=== PATIENT | male | born 1980 | race Caucasian/White ===

== ENCOUNTER 2017-06-05 18:23 | Emergency (ER) | payer BC ==
[~2017-06-05] VITALS: Ht 177.8 cm; Wt 70.3 kg
[~2017-06-05 18:23] MED LIST: GENT3.5O18 OP/OT; HYDR-757 PO
--- OUTSIDE RECORDS SUMMARY | 2017-06-05 18:29 | XMS REPORT ---
Author Author GREG Gregg [facility] Address Unknown Care Team Providers Care Electric Meter Technician Name Role Phone GREG Gregg Unavailable PROBLEMS Unknown Problems ALLERGIES Substance Reaction Event Type Date Status N.K.D.A. Unknown Non Drug Allergy Apr, Unknown SOCIAL HISTORY No smoking Hx information available PLAN OF CARE Activity Details Follow Up prn Reason:miguel/hygiene VITAL SIGNS Blood pressure systolic 80 mmHg 2016-04-25 Blood pressure diastolic 54 mmHg 2016-04-25 MEDICATIONS No Known Medications RESULTS No Results PROCEDURES Procedure Date Ordered Related Diagnosis Body Site EXTRAC ERUPTED TOOTH/EXPOSED ROOT Apr 25, 2016 IMMUNIZATIONS No Known Immunizations
--- OUTSIDE RECORDS SUMMARY | 2017-06-05 18:29 | XMS REPORT ---
Author Author GREG Gregg [facility] Address Unknown Care Team Providers Care Meat Packer Name Role Phone GREG Gregg Unavailable PROBLEMS Unknown Problems ALLERGIES Substance Reaction Event Type Date Status N.K.D.A. Unknown Non Drug Allergy Apr, Unknown SOCIAL HISTORY No smoking Hx information available PLAN OF CARE Activity Details Follow Up prn Reason:te VITAL SIGNS Blood pressure systolic 147 mmHg 2016-04-14 Blood pressure diastolic 102 mmHg 2016-04-14 MEDICATIONS Medication Instructions Dosage Frequency Start Date End Date Duration Status Amoxicillin 500 MG Orally 4 times a day 1 capsule 6h Apr, Apr, 7 days Active [place] 5-325 MG Orally every 6 hrs 1 tablet as needed 6h Apr, Apr, 4 days Active RESULTS No Results PROCEDURES Procedure Date Ordered Related Diagnosis Body Site LTD ORAL EVALUATION - PROBLEM FOCUS Apr 14, 2016 INTRAORL-PERIAPICAL 1 FILM [id number] Apr 14, 2016 IMMUNIZATIONS No Known Immunizations
--- OUTSIDE RECORDS SUMMARY | 2017-06-05 18:29 | XMS REPORT | Continuity of Care Document ---
Author Author [facility] Organization [facility] Address Unknown Phone Unavailable Allergies Active Description Code Type Severity Reaction Onset Reported/Identified Relationship to Patient Clinical Status Yes No Known Drug Allergies [id number] Drug Allergy Unknown N/A 11/01/2014 Medications There is no data. Problems Date Dx Coded Attending Type Code Diagnosis Diagnosed By 11/01/2014 MATHEW SERNA APRN Ot 930.0 11/01/2014 MATHEW SERNA APRN Ot E000.8 11/01/2014 MATHEW SERNA APRN Ot E914 11/01/2014 MATHEW SERNA APRN Ot V06.1 Procedures There is no data. Results There is no data. Encounters ACCT No. Visit Date/Time Discharge Status Pt. Type Provider Facility Loc./Unit Complaint [id number] 11/01/2014 12:05:00 11/01/2014 12:52:00 DIS Emergency MATHEW SERNA APRN [facility] ER
--- NOTE | 2017-06-05 18:40 | ED Lower Extremity ---
General Chief Complaint: Lower Extremity Stated Complaint: JAMMED TOE Source: patient Exam Limitations: no limitations History of Present Illness Date Seen by Provider: Jun 05, 2017 Time Seen by Provider: 18:38 Initial Comments To ER with concerns of a possible jammed left great toe. This began this morning after he kicked a steel plate. Onset: this morning Severity: moderate Pain/Injury Location: bilateral 1st toe Method of Injury: direct blow Allergies and Home Medications Allergies Coded Allergies: No Known Drug Allergies (Unverified , 11/01/14) Home Medications Gentamicin Sulfate 3.5 Gm Oint..gm., 0.5 INCH OP/OT Q4H for 3 Days Prescribed by: MATHEW SERNA on 11/01/14 1239 Hydrocodone Bit/Acetaminophen 1 Each Tablet, 1 EA PO Q6H PRN for PAIN, #10 Prescribed by: MATHEW SERNA on 11/01/14 1240 Constitutional: see HPI EENTM: see HPI Respiratory: no symptoms reported Cardiovascular: no symptoms reported Genitourinary: no symptoms reported Musculoskeletal: see HPI Skin: no symptoms reported Psychiatric/Neurological: No Symptoms Reported Past Jvxhlvf-Ellbvq-Nruoks Hx Immunizations Up To Date Tetanus Booster (TDap): Unknown Cardiovascular Cardiac Disorders: Hypertension Reproductive System Hx Reproductive Disorders: No Sexually Transmitted Disease: No HIV/AIDS: No Blood Transfusions Adverse Reaction to a Blood Tr: No Physical Exam Vital Signs Vital Sign - Last 12Hours 06/05/17 18:36 Temp 98.2 Pulse 75 Resp 20 B/P (MAP) 203/125 (151) Pulse Ox 98 O2 Delivery Room Air Capillary Refill : General Appearance: WD/WN, no apparent distress HEENT: PERRL/EOMI, normal ENT inspection Neck: non-tender, full range of motion Respiratory: no respiratory distress, no accessory muscle use Gastrointestinal: normal bowel sounds, non tender Hips: bilateral hip non-tender, bilateral hip normal inspection, bilateral hip normal range of motion Legs: bilateral leg non-tender, bilateral leg normal inspection, bilateral leg normal range of motion Knees: bilateral knee non-tender, bilateral knee normal inspection, bilateral knee normal range of motion Ankles: bilateral ankle non-tender, bilateral ankle normal inspection, bilateral ankle normal range of motion Feet: left foot other (there is dorsal angulation of the distal portion of the great toe) Neurologic/Tendon: normal sensation Neurologic/Psychiatric: alert, normal mood/affect, oriented x 3 Skin: normal color, warm/dry Progress/Results/Core Measures Results/Orders My Orders Orders - MATHEW SERNA APRN Foot, Left, 3 Views (06/05/17 18:37) Lidocaine 2% Injection 20 Ml (Xylocaine (06/05/17 18:45) Vital Signs/I&O Vital Sign - Last 12Hours 06/05/17 18:36 Temp 98.2 Pulse 75 Resp 20 B/P (MAP) 203/125 (151) Pulse Ox 98 O2 Delivery Room Air Departure Communication (Admissions) Progress Notes Digital nerve block done with 2% lidocaine done total 4ml. Traction applied, toe easily reduced. Impression Impression: Primary Impression: Toe dislocation Disposition: HOME, SELF-CARE Condition: Stable Departure-Patient Inst. Decision time for Depature: 18:51 Referrals: NO,LOCAL PHYSICIAN (PCP/Family) Primary Care Physician Patient Instructions: DISLOCATION-TOE Add. Discharge Instructions: 1. Return to ER for any concerns. Tylenol and Motrin for pain control. All discharge instructions reviewed with patient and/or family. Voiced understanding. MATHEW SERNA APRN Jun 05, 2017 18:40
[2017-06-05] MEDS ORDERED: LIDOCAINE 2% 20 ML (XYLOCAINE) VIAL INJ ONE (18:45)
--- NOTE | 2017-06-05 19:04 | Diagnostic Imaging Report ---
INDICATION: Left foot pain. FINDINGS: 3 views of left foot show dislocation of the big toe at the interphalangeal joint. There is no appreciable fracture. IMPRESSION: Dislocated left big toe interphalangeal joint. Dictated by: Dictated on workstation # [id number]
[2017-06-05 19:06] VITALS: BP 203/125
== END 2017-06-05 19:09 | disposition home or self-care (01) ==
LOC: EDUNIT# 18:23 → ER 18:26
DX: S93.112A Dislocation of interphalangeal joint of left great toe, initial encounter (principal); W22.09XA Striking against other stationary object, initial encounter
CPT/HCPCS: 73630; 99283